=== PATIENT | female | born 1990 | race Caucasian/White ===

== ENCOUNTER 2017-01-20 16:14 | Observation (INO) | payer OTHER ==
[~2017-01-20] VITALS: Ht 165.1 cm; Wt 62.7 kg
[~2017-01-20 16:14] MED LIST: LISI10TA3 PO; MINO100 PO
[2017-01-20] MEDS ORDERED: NALOXONE HCL 0.4 MG/ML AMP IV PRN (18:00)
[2017-01-20] MEDS ORDERED: ACETAMINOPHEN 325 MG TAB PO PRN (18:00)
[2017-01-20] MEDS ORDERED: MAGNESIUM HYDROXIDE SUSP 30 ML CUP PO PRN (18:00)
[2017-01-20] MEDS ORDERED: SODIUM CHLORIDE 0.9% FLUSH 10 ML FLUSH IV FLUSH PRN (18:00)
[2017-01-20] MEDS ORDERED: ONDANSETRON HCL 4 MG/2 ML VIAL IVP PRN (18:00)
--- NOTE | 2017-01-20 19:37 | HHI.HP ---
HPI Service [facility] Hospitalists Primary Care Physician Donnie Vernon MD Admission Diagnosis Diagnoses: Chief Complaint: Passed out Travel History International Travel<30 Days: No Contact w/Intl Traveler <30 Da: No Traveled to Known Affected Are: No History of Present Illness Ms. John is a pleasant 26 year old female with a history of hypertension who presented to the [place] ED in [place], [place] after a syncopal episode on 01/20/2017. She was walking towards her window and next thing she remembers is waking up on the floor. She believes she passed out for a few seconds. She did have some confusion but quickly resolved within 10 seconds or so. She did hit her right shoulder and hip area. No loss of bowel or bladder control. No tongue biting. Patient did not have any chest pain, shortness of breath, cough, fever, chills. She did not have any dizziness, lightheadedness, palpitation, diaphoresis. She has never had an episode such as this one. She does report feeling exhausted, fatigued and weak in the last week or so. Up until 3 weeks ago, patient was on Labetalol for hypertension and BP med was switched to Lisinopril. She reports her normal heart rate around 40s and 50s and she does feel fatigued. She was physically much more active but not so much in the last several months since her childbirth. She currently denies any chest pain, SOB, fever, chills. Denies any changes in bladder or bowel habits. Review of Systems Except as stated in HPI: all other systems reviewed are Neg Past Family Social History Past Medical History Hypertension Past Surgical History Breast Augmentation Inguinal hernia repair. Deviated septum. Reported Medications Minocycline (Minocycline HCl) 100 Mg Cap 100 Mg PO ONCE Lisinopril 10 Mg Tab 10 Mg PO DAILY Allergies: Coded Allergies: No Known Allergies (Unverified , 01/20/17) Family History Grandpa had AR in his 30s. Aunt had AR in her 40s. Social History Denies using tobacco, alcohol or illicit drugs. Physical Exam Physical Exam GENERAL: This is a well-nourished, well-developed patient, in no apparent distress. SKIN: No rashes, ecchymoses or lesions. Warm and dry. HEAD: Atraumatic. Normocephalic. No temporal or scalp tenderness. EYES: Pupils equal round and reactive. No injection or drainage. ENT: Nose without bleeding, purulent drainage or septal hematoma. Airway patent. NECK: Trachea midline. No lymphadenopathy. Supple, nontender, no meningeal signs. CARDIOVASCULAR: Regular rate and rhythm without murmurs, gallops, or rubs. No JVD. RESPIRATORY: Clear to auscultation. Breath sounds equal bilaterally. No wheezes , rales, or rhonchi. GASTROINTESTINAL: Abdomen soft, non-tender, nondistended. No guarding. MUSCULOSKELETAL: Extremities without clubbing, cyanosis, or edema. NEUROLOGICAL: Awake and alert. Cranial nerves II through XII intact. No focal neurological deficits. Normal speech. Laboratory WBC 5, Hgb 14.6, HCT 44.1, PLT 237 Na 140, K 4.0, Chloride 103, BUN 8, Creatinine 0.90, Glucose 86. Calcium 9.3. Imaging CT head done at ED in [place] - unremarkable study. Assessment and Plan Problem List: (1) Syncope ICD Code: R55 Status: Acute (2) HTN (hypertension) ICD Code: I10 Status: Acute Assessment and Plan Ms. John is a pleasant 26 year old female with a history of HTN who presented to [facility] ED with a sudden onset of syncope without any prodromal symptoms. - Acute syncope - Will obtain orthostatics. - Carotid US, Echo - Will consult cardiology given the nature of instant onset of syncope without any prodromal symptoms. - Cardiology ordered T3,T4, TSH. Will follow. - Maintain telemetry. CBC, BMP, Mg level in the AM. EKG in the AM. - Hypertension - Patient has been on Lisinopril. - Will consider Amlodipine and Lisinopril for BP since her BP is above 20/10 points above range range for her age. Full code. SCDs. Fernando Otero DO January 20, 2017 19:37
[2017-01-20 19:49] VITALS: BP_SYST 152; BP_SYST 161; BP_DIAS 100; BP_DIAS 84; PULSE 73; RESP 16; TEMP 98; O2SAT 100
[2017-01-20 20:08] VITALS: PULSE 75
--- NOTE | 2017-01-20 22:32 | RADRPT ---
EXAM DATE/TIME: 01/20/2017 21:41 [facility] COMPARISON: No previous studies available for comparison. INDICATIONS : Syncope. MEDICAL HISTORY : Hernia, inguinal. Hypertension. Migraines. Irregular heartbeat. SURGICAL HISTORY : Inguinal hernia repair. Breast augmentation. ENCOUNTER: Initial ACUITY: 1 day PAIN SCORE: 0/10 LOCATION: Bilateral neck PEAK SYSTOLIC VELOCITIES (cm/sec): ICA/CCA RATIO: Right: 1.1 Left: 1.2 ICA: Right: 99 Left: 108 CCA: Right: 92 Left: 93 ECA: Right: 85 Left: 74 VERTEBRAL: Right: 55 antegrade Left: 53 antegrade Elevated flow velocities and ICA/CCA ratios have been found to correlate with increased degrees of vessel stenosis, calculated as percentage of diameter relative to a normal segment of distal ICA/CCA FINDINGS: RIGHT CAROTID: No significant stenosis is visualized. The waveforms are within normal limits. LEFT CAROTID: No significant stenosis is visualized. The waveforms are within normal limits. VERTEBRAL ARTERIES: Antegrade flow is seen in both vertebral arteries. MISCELLANEOUS: None. CONCLUSION: Normal bilateral carotid ultrasound. Parviz Sampson MD on January 20, 2017 at 22:30 Board Certified Radiologist. This report was verified electronically.
[2017-01-20] MEDS: SODIUM CHLOR 0.9% 1000 ML INJ 1,000 ML IV SCH (22:46)
[2017-01-20] MEDS: SODIUM CHLORIDE 0.9% FLUSH 10 ML FLUSH IV FLUSH SCH (22:48)
[2017-01-21] VITALS: BP_SYST 119; BP_SYST 122; BP_SYST 124; BP_DIAS 66; BP_DIAS 83; BP_DIAS 86; PULSE 64; RESP 16; TEMP 97.7; O2SAT 100
[2017-01-21] MEDS: ACETAMINOPHEN/HYDROcodone 325 MG/5 MG TAB PO PRN ×4 (00:14→16:55)
[2017-01-21] MEDS ORDERED: traMADol HCL 50 MG TAB PO PRN (00:15)
[2017-01-21] MEDS ORDERED: PILL SPLITTER OTHER PRN (00:30)
--- NOTE | 2017-01-21 01:18 | RADRPT ---
EXAM DATE/TIME: 01/21/2017 00:45 [facility] COMPARISON: No previous studies available for comparison. INDICATIONS : Trauma, fall. MEDICAL HISTORY : None. SURGICAL HISTORY : None. ENCOUNTER: Initial ACUITY: 1 day PAIN SCORE: 4/10 LOCATION: Right Shoulder. FINDINGS: Multiple view examination of the right shoulder demonstrates no evidence of fracture or dislocation. The glenohumeral and acromioclavicular joints are maintained. There is normal range of motion betwe en internal and external rotation. Bony mineralization is normal. CONCLUSION: 1. Negative examination of the shoulder. Primo Maddox MD on January 21, 2017 at 1:17 Board Certified Radiologist. This report was verified electronically.
[2017-01-21 04:04] VITALS: BP 122/65; PULSE 65; RESP 16; TEMP 97.3; O2SAT 99
--- NOTE | 2017-01-21 06:48 | MB ---
cc: FELA SALAZAR DATE OF CONSULTATION 01/20/2017 REASON FOR CONSULTATION Ms. John is a 26 year-old white female who has had generalized weakness, occasional palpitations and fatigue over the last week. Today she was walking to the window and suddenly passed out and woke up on the floor. She had no preceding dizziness, palpitations, chest pain or shortness of breath. She had previous syncope on two occasions when she was with her first child. She was hypotensive during the first . She saw her primary care physician, Dr. Vernon, and had EKG last week and was told her heart rate was slow. PAST MEDICAL HISTORY Positive for: 1. Hypertension 2. Recent abnormal EKG 3. History of hernia surgery. 4. Breast augmentation 5. Migraine headaches 6. No history of diabetes mellitus or dyslipidemia. MEDICATIONS 1. Minocycline 2. Lisinopril ALLERGIES None SOCIAL HISTORY The patient does not smoke. She does not drink alcohol. FAMILY HISTORY Positive for heart disease in her grandparents. REVIEW OF SYSTEMS Otherwise negative. PHYSICAL EXAM Blood pressure 120/90, pulse 100 and regular. HEAD, EYES, EARS, NOSE, AND THROAT: Negative. 2+carotid upstrokes. No bruits. LUNGS: Clear. HEART: Regular with no murmur, gallop, rub. ABDOMEN: Soft, no bruits. EXTREMITIES: Without edema. 2+ distal pulses. NEUROLOGIC: Grossly nonfocal. LABS Hemoglobin 14.6, potassium 4.0, creatinine 0.9. DIAGNOSIS 1. Syncope 2. Hypertension 3. History of abnormal EKG. DISPOSITION Ms. John will be monitored on telemetry. We will obtain serial EKG's. We will also check echocardiogram to evaluate her left ventricular function. I will follow her for cardiology during her hospitalization. MD AC Mace/GONZALEZ /9:15 PM /6:38 AM NORRIS
[2017-01-21 08:00] VITALS: BP 107/69; PULSE 59; RESP 18; TEMP 98.1; O2SAT 100
[2017-01-21] MEDS: SODIUM CHLORIDE 0.9% FLUSH 10 ML FLUSH IV FLUSH SCH (08:34)
[2017-01-21] MEDS: SODIUM CHLOR 0.9% 1000 ML INJ 1,000 ML IV SCH (08:36)
[2017-01-21 08:39] VITALS: PULSE 52
--- NOTE | 2017-01-21 08:49 | RADRPT ---
EXAM DATE/TIME: 01/21/2017 08:18 [facility] COMPARISON: No previous studies available for comparison. INDICATIONS : Syncope. MEDICAL HISTORY : None. SURGICAL HISTORY : None. ENCOUNTER: Initial ACUITY: 1 day PAIN SCORE: 0/10 LOCATION: Bilateral chest FINDINGS: A single view of the chest demonstrates the lungs to be symmetrically aerated without evidence of mas s, infiltrate or effusion. The cardiomediastinal contours are unremarkable. Osseous structures are intact. CONCLUSION: No acute disease. Parviz Feng MD on January 21, 2017 at 8:47 Board Certified Radiologist. This report was verified electronically.
[2017-01-21] MEDS ORDERED: LISINOPRIL 5 MG TAB PO SCH (09:00)
[2017-01-21] MEDS ORDERED: amLODIPine BESYLATE 5 MG TAB PO SCH (09:00)
[2017-01-21 09:48] LABS: BASOPHIL % 0.4 % (0.0-2.0); EOSINOPHIL # 0.3 TH/MM3 (0-0.4); EOSINOPHIL % 5.7 % (0.0-4.0); HEMATOCRIT 39.2 % (35.0-46.0); HEMO FLAGS DIFF FINAL; LYMPH % 48.8 % (9.0-44.0); LYMPHOCYTE # 2.5 TH/MM3 (1.0-4.8); MEAN CELL VOLUME 83.6 FL (80.0-100.0); MEAN CORPUSCULAR HEMOGLOBIN 28.3 PG (27.0-34.0); MEAN CORPUSCULAR HGB CONC 33.8 % (32.0-36.0); MONO % 6.1 % (0.0-8.0); PLATELET COUNT 190 TH/MM3 (150-450); RED BLOOD COUNT 4.69 MIL/MM3 (4.00-5.30); RED CELL DISTRIBUTION WIDTH 13.6 % (11.6-17.2); WHITE BLOOD COUNT 5.1 TH/MM3 (4.0-11.0)
[2017-01-21 10:41] LABS: FREE T3 2.86 PG/ML (2.18-3.98); POTASSIUM 4.3 MEQ/L (3.5-5.1); THYROXINE (T4) 6.6 MCG/DL (4.8-13.9)
--- NOTE | 2017-01-21 10:44 | HHI.PR ---
Subjective Remarks Follow-up for syncope. Patient is currently doing well. Denies any chest pain , shortness of breath, fever or chills. Checked telemetry. Patient had heart rate in the 40s at night and tachycardia in the 120s in the morning. Objective Vitals Vital Signs Date Time Temp Pulse Resp B/P Pulse Ox O2 Delivery O2 Flow Rate FiO2 01/21/17 08:00 98.1 59 18 107/69 100 01/21/17 04:04 97.3 65 16 122/65 99 01/21/17 00:00 Room Air 01/21/17 00:00 97.7 64 16 124/66 100 122/83 119/86 01/20/17 20:08 75 01/20/17 20:00 Room Air 01/20/17 19:49 98.0 73 16 152/84 100 161/100 I/O 01/20/17 01/20/17 01/20/17 01/21/17 01/21/17 01/21/17 07:00 15:00 23:00 07:00 15:00 23:00 Intake Total 1587 ml Balance 1587 ml Intake Oral 960 ml IV Total 627 ml # Voids 3 # Bowel Movements 0 Result Diagram: 01/21/17 0842 Imaging Last Impressions Chest X-Ray 01/21/17 0800 Signed Impressions: Service Date/Time: Saturday, January 21, 2017 08:18 - CONCLUSION: No acute disease. Parviz Feng MD Shoulder X-Ray 01/20/17 0000 Signed Impressions: Service Date/Time: Saturday, January 21, 2017 00:45 - CONCLUSION: 1. Negative examination of the shoulder. Primo Maddox MD Carotid Artery Ultrasound 01/20/17 0000 Signed Impressions: Service Date/Time: Friday, January 20, 2017 21:41 - CONCLUSION: Normal bilateral carotid ultrasound. Parviz Sampson MD Objective Remarks GENERAL: Alert, oriented 3, NAD. SKIN: Warm and dry. HEAD: Normocephalic. EYES: No scleral icterus. No injection or drainage. NECK: Supple, trachea midline. No JVD or lymphadenopathy. CARDIOVASCULAR: Regular rate and rhythm without murmurs, gallops, or rubs. RESPIRATORY: Breath sounds equal bilaterally. No accessory muscle use. GASTROINTESTINAL: Abdomen soft, non-tender, nondistended. MUSCULOSKELETAL: No cyanosis, or edema. BACK: Nontender without obvious deformity. No CVA tenderness. Procedures Echocardiogram done. Report pending. A/P Problem List: (1) Syncope ICD Code: R55 Status: Acute (2) HTN (hypertension) ICD Code: I10 Status: Acute Assessment and Plan Ms. John is a pleasant 26 year old female with a history of HTN who presented to [facility] ED with a sudden onset of syncope without any prodromal symptoms. - Acute syncope - orthostatic BP unremarkable. - Carotid US unremarkable, Echo done but report pending. - Discussed with cardiology who agrees with a treadmill exercise stress test. - CBC, BMP largely unremarkable. TSH 2.48, free T3 2 0.86, T4 6.6. - CBC shows mild eosinophilia. Advised patient to repeat CBC in 3-4 months. - Hypertension - Continue Amlodipine and Lisinopril for BP since her BP is above 20/10 points above range range for her age. Full code. SCDs. Probable Discharge after stress test. Patient will likely need loop recorder on discharge. Fernando Otero DO January 21, 2017 10:44
--- NOTE | 2017-01-21 11:45 | EKG ---
Date Performed: 01/21/2017 Time Performed: 07:44:53 PTAGE: 26 years EKG: Sinus rhythm WITH SINUS ARRHYTHMIA NORMAL ECG NO PREVIOUS TRACING DOCTOR: Gabriel Domínguez Interpretating Date/Time 01/21/2017 11:44:56
[2017-01-21 12:00] VITALS: BP 124/70; PULSE 55; RESP 18; TEMP 97.8; O2SAT 99
--- NOTE | 2017-01-21 13:14 | EC ---
Study Study Date:01/21/2017 STUDY CONCLUSIONS SUMMARY LEFT VENTRICLE: The cavity size was normal. Systolic function was normal. The estimated ejection fraction was in the range of 55% to 60%. Wall motion was normal; there were no regional wall motion abnormalities. Left ventricular diastolic function parameters were normal. If LV function is below 40, please consider prescribing an ACEI or ARB or document rationale for non-use. PROCEDURE DATA STUDY STATUS: Elective. Procedure: Transthoracic echocardiography. Scanning was performed from the parasternal, apical, and subcostal acoustic windows. Study completion: The patient tolerated the procedure well. Transthoracic echocardiography. M-mode, complete 2D, complete spectral Doppler, and color Doppler. Patient status: Inpatient. CARDIAC ANATOMY LEFT VENTRICLE: The cavity size was normal. Systolic function was normal. The estimated ejection fraction was in the range of 55% to 60%. Wall motion was normal; there were no regional wall motion abnormalities. Left ventricular diastolic function parameters were normal. AORTIC VALVE: [place]. Doppler: There was no stenosis. No significant regurgitation. Valve area: 2.55cm^2 (Vmax). MITRAL VALVE: The valve appears to be grossly normal. No echocardiographic evidence for prolapse. Doppler: There was no evidence for stenosis. No significant regurgitation. Peak gradient: 2mm Hg (D). LEFT ATRIUM: The atrium was normal in size. RIGHT VENTRICLE: The cavity size was normal. Systolic function was normal. PULMONIC VALVE: Not well visualized. Doppler: There was no evidence for stenosis. Trace regurgitation. TRICUSPID VALVE: The valve appears to be grossly normal. Doppler: There was no evidence for stenosis. Trace regurgitation. PERICARDIUM: There was no pericardial effusion. BASIC MEASUREMENTS ADULT NORMAL Left ventricle LV internal dimension, ED, chordal level, 45.9 mm 43-52 PLAX LV internal dimension, ES, chordal level, 33 mm 23-38 PLAX Fractional shortening, chordal level, PLAX *28 % >29 LV posterior wall thickness, ED 9.32 mm IVS/LVPW ratio, ED 1.06 <1.3 Ventricular septum Septal thickness, ED 9.91 mm Aortic valve Leaflet separation 22 mm 15-26 Right ventricle RV internal dimension, ED, PLAX 24.6 mm 19-38 BASIC MEASUREMENTS ADULT NORMAL Aortic valve Leaflet separation 22 mm 15-26 Aorta Root diameter, ED 27 mm 20-37 Left atrium Anterior-posterior dimension, ES 30 mm 19-40 LA/aortic root ratio 1.11 DOPPLER MEASUREMENTS ADULT NORMAL Main pulmonary artery Pressure, S 26 mm Hg =30 Pressure, ED 13 mm Hg Aortic valve Peak velocity, S 105 cm/s Valve area, Vmax 2.55 cm^2 Mitral valve Peak E-wave velocity 73.5 cm/s Peak A-wave velocity 30.1 cm/s Deceleration time 190 ms 150-230 Peak gradient, D 2 mm Hg Peak E/A ratio 2.4 Tricuspid valve Regurgitant peak velocity 214 cm/s Peak RV-RA gradient, S 18 mm Hg Maximal regurgitant velocity 214 cm/s Systemic veins Estimated CVP 10 mm Hg Right ventricle RV pressure, S 28 mm Hg <30 Pulmonic valve Peak velocity, S 77.4 cm/s Regurgitant velocity, ED 82.8 cm/s LEGEND: Mean values are shown as u=mean value. Asterisk (*) farr values outside specified normal range. Prepared and signed by Ankur Harper [id number]
[2017-01-21 16:00] VITALS: BP 131/71; PULSE 89; RESP 18; TEMP 98.2; O2SAT 99
[2017-01-21] MEDS ORDERED: LISI-519 PO (17:39)
[2017-01-21] MEDS ORDERED: AMLO5 PO (17:39)
[2017-01-21] MEDS ORDERED: ULTR50TA5 PO (17:39)
--- NOTE | 2017-01-21 17:41 | PD.CARD.PN ---
Subjective Subjective Remarks No CP, SOB, or syncope, feels better Objective Medications Current Medications Medications (Trade) Dose Ordered Sig/Galileo Route Start Time Stop Time Status Last Admin (NS 1000 ml Inj) 1,000 ml @ 100 mls/hr Q10H IV 01/20/17 19:30 01/21/17 08:36 (NS Flush) 2 ml UNSCH PRN IV FLUSH 01/20/17 18:00 (NS Flush) 2 ml BID IV FLUSH 01/20/17 21:00 01/20/17 22:48 (Tylenol) 650 mg Q4H PRN PO 01/20/17 18:00 01/20/17 22:46 (Zofran Inj) 4 mg Q6H PRN IVP 01/20/17 18:00 (Milk Of Magnesia Liq) 30 ml Q12H PRN PO 01/20/17 18:00 (Narcan Inj) 0.4 mg UNSCH PRN IV 01/20/17 18:00 ([place] 5-325 Mg) 1 tab Q4H PRN PO 01/21/17 00:00 01/21/17 16:55 (Norvasc) 2.5 mg DAILY PO 01/21/17 09:00 01/21/17 08:34 (Prinivil) 5 mg DAILY PO 01/21/17 09:00 01/21/17 08:34 (Ultram) 50 mg Q8H PRN PO 01/21/17 00:15 (Pill Splitter) 1 ea UNSCH PRN OTHER 01/21/17 00:30 Vital Signs / I&O Vital Signs Date Time Temp Pulse Resp B/P Pulse Ox O2 Delivery O2 Flow Rate FiO2 01/21/17 16:00 98.2 89 18 131/71 99 01/21/17 12:00 97.8 55 18 124/70 99 01/21/17 08:39 Room Air 01/21/17 08:39 52 01/21/17 08:00 98.1 59 18 107/69 100 01/21/17 04:04 97.3 65 16 122/65 99 01/21/17 00:00 Room Air 01/21/17 00:00 97.7 64 16 124/66 100 122/83 119/86 01/20/17 20:08 75 01/20/17 20:00 Room Air 01/20/17 19:49 98.0 73 16 152/84 100 161/100 I/O 01/20/17 01/20/17 01/20/17 01/21/17 01/21/17 01/21/17 07:00 15:00 23:00 07:00 15:00 23:00 Intake Total 1587 ml 720 ml 829 ml Output Total 1300 ml Balance 1587 ml -580 ml 829 ml Intake Oral 960 ml 720 ml IV Total 627 ml 829 ml Output Urine Total 1300 ml # Voids 3 # Bowel Movements 0 0 Physical Exam GENERAL: In NAD SKIN: Warm and dry. HEAD: Normocephalic. EYES: No scleral icterus. No injection or drainage. NECK: Supple, trachea midline. No JVD or lymphadenopathy. CARDIOVASCULAR: Regular rate and rhythm without murmurs, gallops, or rubs. RESPIRATORY: Breath sounds equal bilaterally. No accessory muscle use. GASTROINTESTINAL: Abdomen soft, non-tender, nondistended. MUSCULOSKELETAL: No cyanosis, or edema. Laboratory Laboratory Tests Test 01/21/17 08:42 White Blood Count 5.1 TH/MM3 Red Blood Count 4.69 MIL/MM3 Hemoglobin 13.3 GM/DL Hematocrit 39.2 % Mean Corpuscular Volume 83.6 FL Mean Corpuscular Hemoglobin 28.3 PG Mean Corpuscular Hemoglobin 33.8 % Concent Red Cell Distribution Width 13.6 % Platelet Count 190 TH/MM3 Mean Platelet Volume 9.2 FL Neutrophils (%) (Auto) 39.0 % Lymphocytes (%) (Auto) 48.8 % Monocytes (%) (Auto) 6.1 % Eosinophils (%) (Auto) 5.7 % Basophils (%) (Auto) 0.4 % Neutrophils # (Auto) 2.0 TH/MM3 Lymphocytes # (Auto) 2.5 TH/MM3 Monocytes # (Auto) 0.3 TH/MM3 Eosinophils # (Auto) 0.3 TH/MM3 Basophils # (Auto) 0.0 TH/MM3 CBC Comment DIFF FINAL Differential Comment Sodium Level 140 MEQ/L Potassium Level 4.3 MEQ/L Chloride Level 105 MEQ/L Carbon Dioxide Level 28.0 MEQ/L Anion Gap 7 MEQ/L Blood Urea Nitrogen 16 MG/DL Creatinine 0.80 MG/DL Estimat Glomerular Filtration 85 ML/MIN Rate Random Glucose 81 MG/DL Calcium Level 8.7 MG/DL Magnesium Level 2.1 MG/DL Thyroxine (T4) 6.6 MCG/DL Free Triiodothyronine (T3) 2.86 PG/ML pg/dL Thyroid Stimulating Hormone 2.480 uIU/ML 3rd Gen Imaging Last Impressions Chest X-Ray 01/21/17 0800 Signed Impressions: Service Date/Time: Saturday, January 21, 2017 08:18 - CONCLUSION: No acute disease. Parviz Feng MD Shoulder X-Ray 01/20/17 0000 Signed Impressions: Service Date/Time: Saturday, January 21, 2017 00:45 - CONCLUSION: 1. Negative examination of the shoulder. Primo Maddox MD Carotid Artery Ultrasound 01/20/17 0000 Signed Impressions: Service Date/Time: Friday, January 20, 2017 21:41 - CONCLUSION: Normal bilateral carotid ultrasound. Parviz Sampson MD Assessment and Plan Problem List: (1) Syncope (2) HTN (hypertension) Assessment and Plan No recurrent symptoms. Tele w SR and mild ST. Echo w preserved LV fx. ETT w no evidence of ischemia and good exercise tolerance. DC home. Will schedule F/U and placement of event monitor as outpatient. Jovanni Brooks MD January 21, 2017 17:40
--- NOTE | 2017-01-23 10:56 | TR ---
Date Performed: 01/21/2017 Time Performed: 14:53:25 DOCTOR: Omega Shankar DRUG LIST: CLINICAL HISTORY: REASON FOR TEST: REASON FOR ENDING: OBSERVATION: CONCLUSION: Spenser protocol completed. Stoppeds sec to reaching target heart rate and leg fatigue . Target HR Achieved=86.0 % Maximum ZO=009/84 Total Exercise Time=7:43. No chest discomfort, no ectop y. Good exercise tolerance. Normal bp response. Recovery quick and unremarkable. COMMENTS: Conclusion: Normal treadmill exercise. No evidence of ischemia.
== END 2017-01-21 18:37 | disposition home or self-care (01) ==
LOC: NEDDLT 16:14 → N04B 16:24
PROVIDERS: ADMIT Hospitalist; ATTEND Hospitalist
DX: R55 Syncope and collapse (principal); R53.1 Weakness; D72.1 Eosinophilia; R00.0 Tachycardia, unspecified; I10 Essential (primary) hypertension
CPT/HCPCS: 70450; 71010; 73030; 80048; 81001; 83735; 84436; 84443; 84481; 84702; 85025; 93005; 93017; 93306; 93880; 99285; G0378; J7030; 99281

== ENCOUNTER 2018-11-15 03:51 | Inpatient (IN) ==
[2018-11-15] MEDS ORDERED: Oxytocin 30 Units/500ml Premix 30 UNITS/500 ML BAG IV.SIG ONE (04:25)
[2018-11-15] MEDS ORDERED: Sodium Chlor 0.9% Inj 500 ML IV.SIG PRN (04:25)
[2018-11-15] MEDS ORDERED: fentaNYL Citrate Inj 100 MCG/2 ML Ampul IV.PUSH PRN ×2 (04:25)
[2018-11-15] MEDS ORDERED: Penicillin G Potassium Inj 5,000,000 UNIT in Sodium Chloride 0.9% Inj 100 ML IV.SIG ONE (04:25)
[2018-11-15] MEDS ORDERED: Naloxone Inj 0.4 MG/ML Vial IV.PUSH PRN ×2 (04:25→13:21)
[2018-11-15] MEDS ORDERED: Sod Chloride 0.9% Inj 1,000 ML IV.CONT PRN (04:25)
[2018-11-15] MEDS ORDERED: Citric Acid/Sodium Citrate Liq 30 ML UDC PO SCH (04:30)
--- NOTE | 2018-11-15 04:30 | P.HPOB ---
Patient Name: Vida Higgins Date of : 86 Patient Status: Inpatient Attending Provider: Cora Bhat Date: 11/15/18 04:28 Initialization Date: 11/15/18 04:28 History of Present Illness Primary Care Physician: NOT REQUIRED History of Present Illness: 28 yr old F at 37/1 w/ chronic HTN presents to the ED for LOF. Patient states she woke up this morning with gush of fluid and started having contractions thereafter. Patient of [facility]. Endorses good movement. Denies vaginal bleeding, SOB, and CP. GBS + Review of Systems All other systems reviewed negative except as stated in HPI PMFSH - History History Provided By: Patient - Medical History Medical History: Medical History (Last Updated 09/07/18 @ 00:40 by Larry Bravo MD) History of kidney stones Hypertension Patient denies medical problems - Surgical History Surgical History: Surgical History (Last Updated 04/16/18 @ 15:46 by Nini Bernard RN) No history of previous surgery - Social History I have reviewed the patient's Social History: Yes - Tobacco History Second Hand Smoke Exposure: No Smoking Status: Never smoker - Alcohol History How Often Do You Have a Drink Containing Alcohol: Never - Substance Use History Substance History: No History of Abuse - Travel History History of Recent Travel: No Medications and Allergies Active Medications: Active Medications Citric Acid/Sodium Citrate (Sodium Citrate/Citric Acid Liq) 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 SKIN: Warm and dry. HEAD: Normocephalic and atraumatic. EYES: No scleral icterus. No injection or drainage. ENT: No nasal drainage noted. Mucous membranes pink. Airway patent. NECK: Supple, trachea midline. No JVD. CARDIOVASCULAR: Regular rate and rhythm without murmurs, gallops, or rubs. RESPIRATORY: Breath sounds equal bilaterally. No accessory muscle use. BREASTS: Bilateral exam showed no masses , no retractions, no nipple discharge. ABDOMEN/GI: Abdomen soft, non-tender, bowel sounds present, no rebound, no guarding GENITOURINARY: Cervix: posterior Dilatation: 3 Effacement: 70 Station: -2 Presentation: - Membranes: SROM Uterine Contractions: q2-3 FHT's: Category: 1 Baseline: 130 Reactive: yes Variability: moderate Decels: none EXTREMITIES: No cyanosis or edema. BACK: Nontender without obvious deformity. No CVA tenderness. NEUROLOGICAL: Awake and alert. Motor and sensory grossly within normal limits. Five out of 5 muscle strength in all muscle groups. Normal speech. Assessment and Plan - Diagnosis (1) HTN (hypertension) Code(s): I10 - Essential (primary) hypertension Status: Acute (2) 37 weeks gestation of Code(s): Z3A.37 - 37 weeks gestation of Status: Acute (3) Leakage, amniotic fluid Code(s): O42.90 - Premature rupture of membranes, unspecified as to length of time between rupture and onset of labor, unspecified weeks of gestation Status : Acute (4) Group B streptococcal infection during Code(s): O98.819 - Other maternal infectious and parasitic diseases complicating , unspecified trimester; B95.1 - Streptococcus, group B, as the cause of diseases classified elsewhere Status: Acute - Plan 28 yr F at 37/1 weeks presents to the OB ED for LOF. 1. Routine OB care -Admit to L & D -Amnisure positive -Cervix /-2 -Category 1 tracing, reassuring 2. GBS positive -Start PCN G 3. Chronic HTN -Patient previously on losartan, DC due to -current BP 126/95 -continue to monitor dw Dr. Bhat Discharge Plan - Physicians Team Primary Care Provider: NOT REQUIRED, Attending Provider: Cora Bhat - Rxs /Orders / Referrals /Forms Prescriptions: No Action PNV cmb#95-ferrous fumarate-FA [] 28 mg iron- 800 mcg Tablet 1 tab PO DAILY Referrals: NOT REQUIRED, [Primary Care Provider] - See Instructions
[2018-11-15] MEDS ORDERED: Sodium Chloride 0.9% 2 ML Flush PRN IV.FLUSH (04:34)
[2018-11-15 04:56] LABS: Baso % (Auto) 0.4 % (0.0-2.0); Eos # (Auto) 0.1 th/mm3 (0.0-0.4); Eos % (Auto) 0.8 % (0.0-4.0); Hematocrit 36.3 % (35.0-46.0); Hemoglobin 12.4 gm/dL (11.6-15.3); Lymph # (Auto) 2.5 th/mm3 (1.0-4.8); Lymph % (Auto) 30.3 % (9.0-44.0); Mean Corpuscular HGB Conc 34.2 % (32.0-36.0); Mean Corpuscular Hemoglobin 28.9 pg (27.0-34.0); Mean Corpuscular Volume 84.5 fL (80.0-100.0); Mean Platelet Volume 9.1 fL (7.0-11.0); Mono # (Auto) 0.5 th/mm3 (0.0-0.9); Mono % (Auto) 6.1 % (0.0-8.0); Neut # (Auto) 5.2 th/mm3 (1.8-7.7); Neut % (Auto) 62.4 % (16.0-70.0); Platelet Count 163 th/mm3 (150-450); Red Cell Distribution Width 13.9 % (11.6-17.2); White Blood Count 8.3 th/mm3 (4.0-11.0)
[2018-11-15] MEDS ORDERED: fentaNYL 2MCG-Bupiv 0.125% Epi 150 ML EPIDURAL ONE (05:22)
[2018-11-15] MEDS ORDERED: Lidocaaine 1.5%/Epinephrine 1:200,000 PF Inj 5 ML Amp ONE (06:18)
[2018-11-15] MEDS ORDERED: Sodium Chlor 0.9% Inj 10 ML ONE (06:18)
[2018-11-15] MEDS ORDERED: Lidocaine PF 1% Inj 5 ML Vial ONE (06:18)
[2018-11-15] MEDS ORDERED: fentaNYL Citrate Inj 100 MCG/2 ML Ampul ONE (06:19)
--- NOTE | 2018-11-15 07:01 | P.PN ---
Subjective Interval history: We discussed the goal of a healthy and healthy mother. We discussed that our primary goal is a vaginal delivery but but that sometimes delivery is indicated although less likely based on her 2 previous vaginal deliveries. We discussed the risks of vaginal delivery including lacerations, bleeding/ hemorrhage, and shoulder dystocia. We discussed that shoulder dystocia is unpredictable but she has no indications to recommend delivery. She does not believe this baby is significantly larger than her others. Her GDM testing was negative. We discussed the risks of shoulder dystocia that include but are not limited to a approximately 3-5% risk of permanent and irreversible neurological injury. We discussed the indications for section including maternal indications, indications, and emergent indications. The risks, benefits, and alternatives of section were discussed with the patient. The risks include but are not limited to pain, infection, bleeding, injury to other organs like the bladder/bowel/ nerves/vessels, injury to the baby, need for repeat operation, need for hysterectomy, need for blood transfusion, wound infection or breakdown, and other possible risks. All the patient's questions were answered and consent had previously been signed. She desires to proceed with a vaginal delivery. The patient was noted to have vasovagal episode x2 after epidural with BP as low as 60s/30s. The patient immediately received an IV fluid bolus, ephedrine, and oxygen with a significant improvement in BP. FHR overall reassuring with one deceleration noted. heart rate back to baseline with moderate bus operator variability and good accels, no further decels noted and FHR returned to category 1 tracing. SHe was mentating appropriately following the episode. SVE 3 /70/-2. Physical Exam Vital signs: Vital Signs 11/15/18 04:26 11/15/18 04:30 11/15/18 05:15 Temperature 98.2 F Pulse Rate 109 H Respiratory Rate 18 18 Blood Pressure 126/95 H 11/15/18 05:29 11/15/18 05:53 11/15/18 06:05 Temperature Pulse Rate 78 63 87 Respiratory Rate 18 Blood Pressure 143/90 H 144/100 H 107/67 11/15/18 06:10 11/15/18 06:25 Temperature Pulse Rate 111 H 115 H Respiratory Rate Blood Pressure 117/71 112/70 Intake & Output 11/14/18 11/14/18 11/15/18 06:59 18:59 06:59 Weight 73 kg Results - Labs CBC & Chem 7: 11/15/18 04:30 Laboratory Results - last 24 hr 11/15/18 11/15/18 04:30 04:30 WBC 8.3 RBC 4.30 Hgb 12.4 Hct 36.3 MCV 84.5 MCH 28.9 MCHC 34.2 RDW 13.9 Plt Count 163 MPV 9.1 Neut % (Auto) 62.4 Lymph % (Auto) 30.3 [place] % (Auto) 6.1 Eos % (Auto) 0.8 Baso % (Auto) 0.4 Neut # (Auto) 5.2 Lymph # (Auto) 2.5 [place] # (Auto) 0.5 Eos # (Auto) 0.1 Baso # (Auto) 0.0 WBC Differential . Differential Comment Auto diff final Blood Type O Positive Blood Type Recheck Required
[2018-11-15 07:13] LABS: Bacteria,Urine Rare /hpf; Bilirubin,Urine Negative (Negative); Clarity,Urine Hazy (Clear); Color,Urine Yellow (Yellw/Straw); Glucose,Urine (UA) Negative (Negative); Leukocyte Esterase,Urine Negative (Negative); Nitrite,Urine Negative (Negative); Specific Gravity,Urine 1.009 (1.002-1.035); Squamous Epithelial Cell,Urine 5 /hpf (0-5)
[2018-11-15] MEDS ORDERED: fentaNYL 2MCG-Bupiv 0.125% Epi 150 ML EPIDURAL PRN (07:17)
[2018-11-15] MEDS ORDERED: fentaNYL Citrate Inj 100 MCG/2 ML Ampul EPIDURAL ONE (07:17)
[2018-11-15] MEDS ORDERED: Oxytocin 30 Units/500ml Premix 30 UNITS/500 ML BAG IV.SIG PRN (07:22)
[2018-11-15] MEDS: Penicillin G Potassium Inj 2,500,000 UNIT in Sodium Chlor 0.9% Inj 100 ML IV.SIG SCH ×4 (09:15→23:29)
[2018-11-15] MEDS: Sodium Chloride 0.9% 2 ML Flush BID IV.FLUSH SCH ×2 (10:56→20:50)
--- NOTE | 2018-11-15 13:18 | P.OBDELI ---
Patient Started Active Labor: Yes Active Labor Start Date: 11/14/18 Medical Induction of Labor: No Artificial Rupture of Membrane: No Anesthesia: Epidural Episiotomy: none Vaginal Delivery: Normal Presentation: Occiput posterior Nuchal Cord: x1 Delayed Cord Clamping (45 sec): Yes Placenta: Spontaneous delivery, Uterus explored +, Cord pH Laceration: 2 deg (Bilateral periurethral lacerations,hemostatic.) Repair: Chromic interrupted, Chromic running Estimated blood loss (mL): 100 : Male Additional Information: Direct OP- delivery supervised by Dr. Roberson
[2018-11-15] MEDS ORDERED: Oxytocin 30 Units/500ml Premix 30 UNITS/500 ML BAG IV.CONT PRN (13:21)
[2018-11-15] MEDS ORDERED: Bisacodyl 10 MG Supp RECTAL PRN (13:21)
[2018-11-15] MEDS ORDERED: Zolpidem Tartrate 5 MG Tablet PO PRN (13:21)
[2018-11-15] MEDS ORDERED: Witch Hazel 50%/Glyderin 12.5% 40 Pad Jar RECTAL PRN (13:21)
[2018-11-15] MEDS ORDERED: Benzocaine 20% Top Spray 60 ML Can TOPICAL PRN (13:21)
[2018-11-15] MEDS ORDERED: Measles/Mumps/Rubella Vaccine Inj 0.5 ML Vial SQ ONE (16:00)
[2018-11-15] MEDS ORDERED: Diphtheria/Tetanus/Pertussis Vaccine Inj 0.5 ML Syringe IM ONE (16:00)
[2018-11-15] MEDS: Acetaminophen 325 MG Tablet PO PRN (17:57)
[2018-11-15] MEDS: Senna/Docusate Sodium 8.6/50 MG Tablet PO SCH (20:50)
[2018-11-16] MEDS: Penicillin G Potassium Inj 2,500,000 UNIT in Sodium Chlor 0.9% Inj 100 ML IV.SIG SCH (03:06)
[2018-11-16] MEDS: Senna/Docusate Sodium 8.6/50 MG Tablet PO SCH ×2 (08:27→21:10)
[2018-11-16] MEDS: Sodium Chloride 0.9% 2 ML Flush BID IV.FLUSH SCH ×2 (08:29→21:15)
--- NOTE | 2018-11-16 08:32 | P.PNOB ---
Subjective Post day: 1 Interval history: Patient is a 28-year-old delivered at 37 weeks. Patient is day 1 after . Patient's pain is not well controlled w/Motrin. States she is having cramping pains. Patient reports eating and drinking without any nausea or vomiting. Patient reports bleeding, appears minimal in pad. Patient has passed gas but no bowel movements. Patient is walking without lower extremity pain or shortness of breath. Objective Vital Signs/I&O: Vital Signs 11/15/18 08:40 11/15/18 08:50 11/15/18 08:55 Temperature Pulse Rate 74 66 79 Respiratory Rate 16 Blood Pressure 139/88 134/82 11/15/18 09:25 11/15/18 10:00 11/15/18 10:05 Temperature 98.8 F 98.1 F Pulse Rate 73 81 Respiratory Rate 20 Blood Pressure 126/78 140/89 11/15/18 10:16 11/15/18 10:25 11/15/18 10:40 Temperature Pulse Rate 87 87 Respiratory Rate 18 Blood Pressure 141/78 H 138/85 11/15/18 10:55 11/15/18 11:25 11/15/18 11:35 Temperature Pulse Rate 72 62 81 Respiratory Rate 18 Blood Pressure 145/86 H 134/78 156/92 H 11/15/18 11:40 11/15/18 11:55 11/15/18 12:30 Temperature Pulse Rate 68 66 69 Respiratory Rate Blood Pressure 141/76 H 138/80 134/85 11/15/18 13:08 11/15/18 13:15 11/15/18 13:30 Temperature 98.1 F Pulse Rate 71 67 65 Respiratory Rate 20 18 Blood Pressure 141/77 H 139/84 132/82 11/15/18 13:44 11/15/18 13:46 11/15/18 14:00 Temperature Pulse Rate 65 Respiratory Rate 18 18 Blood Pressure 139/78 11/15/18 14:01 11/15/18 15:01 11/15/18 15:45 Temperature 98.5 F Pulse Rate 60 68 71 Respiratory Rate 16 Blood Pressure 124/72 123/71 128/79 11/15/18 20:00 11/16/18 00:00 11/16/18 08:00 Temperature 97.8 F 98.1 F 98.6 F Pulse Rate 65 58 L 65 Respiratory Rate 18 18 16 Blood Pressure 143/87 H 159/86 H 126/80 Result Diagrams: 11/15/18 04:30 Objective Remarks: GENERAL: Well-nourished, well-developed patient. CARDIOVASCULAR: Regular rate and rhythm without murmurs, gallops, or rubs. RESPIRATORY: Breath sounds equal bilaterally. No accessory muscle use. ABDOMEN/GI: Abdomen soft, non-tender. Fundus: Firm, non-tender at umbilicus. GENITOURINARY: Light to moderate bleeding. EXTREMITIES: No cyanosis or edema, non-tender, without signs of DVT. Medications and IVs: Active Medications Acetaminophen (Tylenol) 650 mg PO Q4H PRN PRN Reason: PAIN SCALE 1 TO 2 Last Admin: 11/15/18 17:57 Dose: 650 mg Al Hydroxide/Mg Hydroxide (Milk Of Magnesia Liq) 30 ml PO Q12H PRN PRN Reason: Mild Constipation Benzocaine (Americaine 20% Top [place]) 1 spray TOPICAL Q4H PRN PRN Reason: For Perineum Discomfort Last Admin: 11/15/18 17:41 Dose: 1 spray Bisacodyl (Dulcolax Supp) 10 mg RECTAL DAILY PRN PRN Reason: SEVERE CONSITIPATION Penicillin G Potassium 2,500, (000 unit/ Sodium Chloride) 100 mls @ 200 mls/hr IV.SIG Q4H [facility] Last Admin: 11/16/18 03:06 Dose: Not Given Oxytocin (Pitocin 30 Units/Ns 500 Ml Premix) 30 units in 500 mls @ 2 mls/hr IV.SIG TITRATE PRN; Protocol PRN Reason: For induction of labor Last Admin: 11/15/18 07:55 Dose: 2 milliunit/min, 2 mls/hr Fentanyl/Bupivacaine/Sodium Chlor (Fentanyl 2 Mcg-Bupiv 0.125% Epi) 150 mls @ 12 mls/hr EPIDURAL PRN PRN PRN Reason: for Labor Pain Oxytocin (Pitocin 30 Units/Ns 500 Ml Premix) 30 units in 500 mls @ 100 mls/hr IV.CONT UNSCH PRN PRN Reason: Heavy bleeding Ibuprofen (Motrin) 800 mg PO Q8H PRN PRN Reason: For Cramping Last Admin: 11/16/18 08:28 Dose: 800 mg Lactulose (Lactulose Liq) 30 ml PO DAILY PRN PRN Reason: SEVERE CONSITIPATION Naloxone HCl (Narcan Inj) 0.1 mg IV.PUSH Q2M PRN PRN Reason: for opiate reversal Ondansetron HCl (Zofran Odt) 4 mg PO Q6H PRN PRN Reason: NAUSEA OR VOMITING Senna/Docusate Sodium (Katerin-Colace) 1 tab PO BID [facility] Last Admin: 11/16/18 08:27 Dose: 1 tab Sennosides (Senokot) 17.2 mg PO Q12H PRN PRN Reason: Moderate Constipation Sodium Chloride (Ns Flush) 2 ml IV.FLUSH BID [facility] Last Admin: 11/16/18 08:29 Dose: 2 ml Sodium Chloride (Ns Flush) 2 ml IV.FLUSH PRN PRN PRN Reason: FLUSH AFTER USING IV ACCESS Witch Laura/Glycerin (Tucks Pads) 1 applicatio RECTAL QID PRN PRN Reason: HEMORRHOIDS Last Admin: 11/15/18 17:41 Dose: 1 applicatio Zolpidem Tartrate (Ambien) 5 mg PO HS PRN PRN Reason: SLEEP Assessment and Plan - Diagnosis (1) (normal spontaneous vaginal delivery) Code(s): O80 - Encounter for full-term uncomplicated delivery Status: Acute (2) HTN (hypertension) Code(s): I10 - Essential (primary) hypertension Status: Acute (3) Leakage, amniotic fluid Code(s): O42.90 - Premature rupture of membranes, unspecified as to length of time between rupture and onset of labor, unspecified weeks of gestation Status : Acute (4) Group B streptococcal infection during Code(s): O98.819 - Other maternal infectious and parasitic diseases complicating , unspecified trimester; B95.1 - Streptococcus, group B, as the cause of diseases classified elsewhere Status: Acute (5) 37 weeks gestation of Code(s): Z3A.37 - 37 weeks gestation of Status: Acute - Plan Patient is day 1 afterSVD. Patient was counseled to do 6 weeks of pelvic rest. Patient was counseled to follow up in 6 weeks. Patient requested follow-up and contraception. --AF VSS --Continue routine care --Motrin when necessary for pain. Advise Sitz baths and katerin-care prn for pain control --Encourage OOB --Pelvic rest for 6 weeks will need follow-up appointment at that time. --Contraception: unknown currently --Anticipate discharge tomorrow JASVIR VASQUEZ
[2018-11-16] MEDS: Acetaminophen 325 MG Tablet PO PRN ×3 (11:47→21:14)
[2018-11-16] MEDS: Clotrimazole 1% Cream 15 GM Tube TOPICAL SCH ×2 (16:21→23:45)
[2018-11-17] MEDS: Acetaminophen 325 MG Tablet PO PRN ×2 (01:18→08:33)
--- NOTE | 2018-11-17 08:23 | P.PNOB ---
Subjective Post day: 2 Interval history: Patient's pain is well-controlled. Patient reports eating and drinking without any nausea or vomiting. Patient reports minimal bleeding. Patient has passed gas but no bowel movements. Patient is walking without lower extremity pain or shortness of breath. Patient is formula feeding. She states she feels like her finger rash is the same as yesterday. Objective Vital Signs/I&O: Vital Signs 11/16/18 19:59 11/17/18 07:34 11/17/18 08:00 Temperature 98.3 F Pulse Rate 76 68 Respiratory Rate 18 Blood Pressure 146/92 H 137/90 137/90 Result Diagrams: 11/15/18 04:30 Objective Remarks: GENERAL: Well-nourished, well-developed patient. CARDIOVASCULAR: Regular rate and rhythm without murmurs, gallops, or rubs. RESPIRATORY: Breath sounds equal bilaterally. No accessory muscle use. ABDOMEN/GI: Abdomen soft, non-tender. Fundus: Firm, non-tender at umbilicus. GENITOURINARY: Light to moderate bleeding. EXTREMITIES: No cyanosis or edema, non-tender, without signs of DVT. Skin: hypopigmentation of the left middle finger palmar side with some dry scales and red sore on back of middle knuckle. Minimal erythema of right palmar ring finger knuckle. Improved from yesterday with less redness and less dry scales. Medications and IVs: Active Medications Acetaminophen (Tylenol) 650 mg PO Q4H PRN PRN Reason: PAIN SCALE 1 TO 2 Last Admin: 11/17/18 01:18 Dose: 650 mg Al Hydroxide/Mg Hydroxide (Milk Of [place]) 30 ml PO Q12H PRN PRN Reason: Mild Constipation Benzocaine (Americaine 20% Top [place]) 1 spray TOPICAL Q4H PRN PRN Reason: For Perineum Discomfort Last Admin: 11/15/18 17:41 Dose: 1 spray Bisacodyl (Dulcolax Supp) 10 mg RECTAL DAILY PRN PRN Reason: SEVERE CONSITIPATION Clotrimazole (Lotrimin 1% Cream) 1 applicatio TOPICAL BID [facility] Last Admin: 11/16/18 23:45 Dose: 1 applicatio Penicillin G Potassium 2,500, (000 unit/ Sodium Chloride) 100 mls @ 200 mls/hr IV.SIG Q4H [facility] Last Admin: 11/16/18 03:06 Dose: Not Given Oxytocin (Pitocin 30 Units/Ns 500 Ml Premix) 30 units in 500 mls @ 2 mls/hr IV.SIG TITRATE PRN; Protocol PRN Reason: For induction of labor Last Admin: 11/15/18 07:55 Dose: 2 milliunit/min, 2 mls/hr Fentanyl/Bupivacaine/Sodium Chlor (Fentanyl 2 Mcg-Bupiv 0.125% Epi) 150 mls @ 12 mls/hr EPIDURAL PRN PRN PRN Reason: for Labor Pain Oxytocin (Pitocin 30 Units/Ns 500 Ml Premix) 30 units in 500 mls @ 100 mls/hr IV.CONT UNSCH PRN PRN Reason: Heavy bleeding Ibuprofen (Motrin) 800 mg PO Q8H PRN PRN Reason: For Cramping Last Admin: 11/17/18 01:18 Dose: 800 mg Lactulose (Lactulose Liq) 30 ml PO DAILY PRN PRN Reason: SEVERE CONSITIPATION Naloxone HCl (Narcan Inj) 0.1 mg IV.PUSH Q2M PRN PRN Reason: for opiate reversal Ondansetron HCl (Zofran Odt) 4 mg PO Q6H PRN PRN Reason: NAUSEA OR VOMITING Senna/Docusate Sodium (Katerin-Colace) 1 tab PO BID [facility] Last Admin: 11/16/18 21:10 Dose: 1 tab Sennosides (Senokot) 17.2 mg PO Q12H PRN PRN Reason: Moderate Constipation Sodium Chloride (Ns Flush) 2 ml IV.FLUSH BID [facility] Last Admin: 11/16/18 21:15 Dose: 2 ml Sodium Chloride (Ns Flush) 2 ml IV.FLUSH PRN PRN PRN Reason: FLUSH AFTER USING IV ACCESS Witch Laura/Glycerin (Tucks Pads) 1 applicatio RECTAL QID PRN PRN Reason: HEMORRHOIDS Last Admin: 11/15/18 17:41 Dose: 1 applicatio Zolpidem Tartrate (Ambien) 5 mg PO HS PRN PRN Reason: SLEEP Assessment and Plan - Diagnosis (1) HTN (hypertension) Code(s): I10 - Essential (primary) hypertension Status: Acute (2) 37 weeks gestation of Code(s): Z3A.37 - 37 weeks gestation of Status: Acute (3) Leakage, amniotic fluid Code(s): O42.90 - Premature rupture of membranes, unspecified as to length of time between rupture and onset of labor, unspecified weeks of gestation Status : Acute (4) Group B streptococcal infection during Code(s): O98.819 - Other maternal infectious and parasitic diseases complicating , unspecified trimester; B95.1 - Streptococcus, group B, as the cause of diseases classified elsewhere Status: Acute - Plan Patient is day 2 after . Patient was counseled to do 6 weeks of pelvic rest. Patient was counseled to follow up in 6 weeks. Patient requested follow-up and contraception. --AF VSS --Continue routine care --Motrin when necessary for pain. Advise Sitz baths and katerin-care prn for pain control --Encourage OOB --Pelvic rest for 6 weeks will need follow-up appointment at that time. --Contraception: unknown currently --Anticipate discharge today Discussed with Dr. Mireles
[2018-11-17] MEDS: Senna/Docusate Sodium 8.6/50 MG Tablet PO SCH (08:32)
[2018-11-17] MEDS: Clotrimazole 1% Cream 15 GM Tube TOPICAL SCH (08:34)
[2018-11-17] MEDS: Sodium Chloride 0.9% 2 ML Flush BID IV.FLUSH SCH (08:34)
== END 2018-11-17 12:00 | disposition home or self-care (01) | DRG 806 ==
LOC: HOBED 03:51 → H2E 04:26 → H1EA 15:32
PROVIDERS: ADMIT Obstetrics & Gynecology; ATTEND Obstetrics & Gynecology
CPT/HCPCS: 81001; 85025; 86900; 86901; 90715; 99285; J2405; J2540; J2590; J3010; J7120